=== PATIENT | male | born 1980 | race Caucasian/White ===

== ENCOUNTER → 2022-07-27 | Outpatient (CLI) | payer BC ==
--- NOTE | 2022-07-28 08:50 | XR ---
Left knee HISTORY: Pain 3 views of the left knee. Bone mineralization, joint spaces and alignment are maintained. No fracture or dislocation. Some ques tionable minimal remodeling present along the medial femoral condyle. Suprapatellar increased density suggests joint effusion. Impression: Correlate for possible joint effusion. There may be some mild osteoarthritic change.
== END | disposition home or self-care (01) ==
LOC: RADXRYALE 16:42
PROVIDERS: ATTEND Physician Assistant
DX: M25.562 Pain in left knee (principal)

== ENCOUNTER → 2025-02-16 | Outpatient (CLI) | payer BC ==
--- NOTE | 2025-02-16 12:54 | CA ---
Exercise Stress Test Report Name: Jamel Humphries Exam Date: 02/16/2025 08:58 Exam Location: [facility] Ht (in): 70 Wt (lb): 180 BSA: 2.00 Ordering Phys: Carlos Alberto Perkins DO Referring Phys: Janine Ernst Technologist: Pippa Gómez RDCS Age: 44 Gender: M : 1980 Procedure CPT: Indications: E78.5 HIGH CHOL R53.83 FATIGUE Z82.49 FAM HX HRT ICD-10 Codes: Patient History: Fatigue and family history of heart disease. Medications: NONE,,, Meds past 24 hrs: Pretest Chest Pain: STRESS TEST Vikas Protocol Exercise Duration (min:sec): 12:[address] Depressions (mm): 0 Angina Score: 0 Plummer Score: 12 Resting HR (bpm): 88 Peak HR (bpm): 165 Resting BP (mmHg): 123 / 78 Peak BP (mmHg): 158 / 69 MPHR: 177 Target HR: 150 % MPHR: 93 METS: 12.1 Total Dose: Peak Dose: Atropine: Double Product: 85850 BP Response: Stress Termination: TARGET HR REACHED/MAX EXERTION Stress Symptoms: NO SYMPTOMS Stress Summary: The patient's target heart rate was achieved, The hemodynamic response to exercise was normal ECG ANALYSIS Resting ECG: Sinus rhythm. Normal conduction. No arrhythmias. Normal repolarization. Stress ECG: No ECG evidence of ischemia with exercise. CONCLUSIONS Patient falls into low-risk group (DTS >= +5). This associates the patient with an annual CV mortality <= 0.5%. 1. Excellent exercise tolerance 2. Normal electrocardiographic response to exercise with no evidence of exercise induced ischemia Dr. Laureano Christianson MD (Electronically Signed) Final Date: 16 February 2025 12:53
== END | disposition home or self-care (01) ==
LOC: RADNMMAIN 08:35
PROVIDERS: ATTEND Family Medicine
DX: E78.5 Hyperlipidemia, unspecified (principal); R53.83 Other fatigue; Z82.49 Family history of ischemic heart disease and other diseases of the circulatory system
CPT/HCPCS: 93017